=== PATIENT | female | born 1940 | race Caucasian/White ===

== ENCOUNTER → 2016-11-16 | Outpatient (CLI) | payer OTHER, MEDICARE | LOC: FIMAGING 14:53 | DX: Z12.31 Encounter for screening mammogram for malignant neoplasm of breast (principal) | CPT/HCPCS: G0202 ==

== ENCOUNTER → 2017-05-21 | Outpatient (CLI) | payer OTHER, MEDICARE ==
[~2017-05-21] MED LIST: GADOBUTROL 10 ML VIAL IVP ONE
== END ==
LOC: FIMAGING 12:23
PROVIDERS: ATTEND Internal Medicine
DX: R51 Headache (principal)
CPT/HCPCS: 70553; A9585

== ENCOUNTER 2018-02-18 20:51 | Observation (INO) | payer OTHER, MEDICARE ==
--- NOTE | 2018-02-18 21:08 | EDPHY ---
H & P Time Seen by Provider: 02/18/18 21:06 HPI/ROS: Chief complaint. Possible kidney stone HPI. Patient is 77-year-old female with sudden onset this afternoon of left flank pain. She got nauseated and somewhat dizzy. Could not find a comfortable position. No chest discomfort or trouble breathing. Denies recent urinary symptoms. She has had kidney stones in the past and this is similar to her previous symptoms. No fever. ROS Constitutional. no fever/chills, no weakness Eyes. no problems with vision ENT. no sore throat, no nasal drainage Cardiovascular. no chest pain Respiratory. no shortness of breath, no cough Abdominal. Left flank pain with nausea and vomit . no problems urinating MS. no calf pain/swelling, no neck/back pain, no joint pain Skin. no rash Lymph. no swollen glands Neuro. no headache, no dizziness, no difficulty walking or with speech Past Medical/Surgical History: Kidney stones, hypertension Social History: , nonsmoker, no alcohol Smoking Status: Never smoked Physical Exam: General Appearance: Alert well-developed female moderate distress vital signs are stable Eyes: Pupils equal and round no pallor or injection. ENT, Mouth: Mucous membranes are moist. Respiratory: There are no retractions, lungs are clear to auscultation. Cardiovascular: Regular rate and rhythm. Gastrointestinal: Abdomen is soft and nontender, no masses, bowel sounds normal. Patient shows me discomfort in the left flank but it is not worse with palpation Neurological: Awake and alert, sensory and motor exams grossly normal. Skin: Warm and dry, no rashes. Musculoskeletal: Neck is supple nontender. Extremities symmetrical, full range of motion. Psychiatric: Patient is oriented X 3, there is no agitation. Constitutional: Initial Vital Signs Temperature (C) 36.6 C 02/18/18 21:00 Heart Rate 90 02/18/18 21:00 Respiratory Rate 18 02/18/18 21:00 Blood Pressure 173/95 H 02/18/18 21:00 O2 Sat (%) 96 02/18/18 21:00 O2 Delivery Mode Room Air Allergies/Adverse Reactions: No Known Allergies Allergy (Unverified 12/14/15 23:16) Home Medications: Medication Instructions Recorded Lisinopril [Zestril 10 mg (RX)] 12/14/15 Medical Decision Making - Diagnostics Imaging Results: Imaging Impressions Abdomen/Pelvis CT 02/18/18 22:13 Impression: 7 mm mid left ureteral calculus with associated moderate hydronephrosis. Results called to Dr. Jackson Alford at 10:30 PM. Attention: This CT examination is specifically designed to evaluate patients who are clinically suspected of having acute obstructive uropathy. This examination does not use radiographic contrast, and as such, provides only a limited evaluation of the abdomen, pelvis and retroperitoneum. If there is further clinical suspicion for pathological conditions other than obstructive uropathy, a complete CT evaluation of the abdomen and pelvis utilizing intravenous, oral, and rectal contrast should be considered. CT scan reviewed by me and discussed with Dr. Juarez shows a 7 mm left mid ureter kidney stone with moderate proximal hydronephrosis. It is at the L5 level. Procedures: IV normal saline. Fentanyl for pain. Zofran for nausea ED Course/Re-evaluation: Re-evaluation patient is stable and comfortable. Patient and I discussed laboratory and imaging studies. We discussed treatment plan including recommendation for admission. She expresses understanding and agreement I consulted discussed case with Dr. Russ, hospitalist who Agrees to the admission I consulted discussed case Dr. Lin for Urology who will see the patient in consultation in the morning. He agrees with current management Differential Diagnosis: I considered kidney stone, pyelonephritis, abdominal aortic aneurysm - Data Points Laboratory Results: Laboratory Results 02/18/18 21:20 02/18/18 21:20 02/18/18 02/18/18 21:20 21:20 WBC 11.35 10^3/uL H 10^3/uL (3.80-9.50) RBC 5.31 10^6/uL 10^6/uL (4.18-5.33) Hgb 15.6 g/dL g/dL (12.6-16.3) Hct 46.5 % % (38.0-47.0) MCV 87.6 fL fL (81.5-99.8) MCH 29.4 pg pg (27.9-34.1) MCHC 33.5 g/dL g/dL (32.4-36.7) RDW 13.8 % % (11.5-15.2) Plt Count 276 10^3/uL 10^3/uL (150-400) MPV 9.4 fL fL (8.7-11.7) Neut % (Auto) 73.4 % % (39.3-74.2) Lymph % (Auto) 19.7 % % (15.0-45.0) [place] % (Auto) 5.6 % % (4.5-13.0) Eos % (Auto) 0.6 % % (0.6-7.6) Baso % (Auto) 0.3 % % (0.3-1.7) Nucleat RBC Rel Count 0.0 % % (0.0-0.2) Absolute Neuts (auto) 8.33 10^3/uL H 10^3/uL (1.70-6.50) Absolute Lymphs (auto) 2.24 10^3/uL 10^3/uL (1.00-3.00) Absolute Monos (auto) 0.64 10^3/uL 10^3/uL (0.30-0.80) Absolute Eos (auto) 0.07 10^3/uL 10^3/uL (0.03-0.40) Absolute Basos (auto) 0.03 10^3/uL 10^3/uL (0.02-0.10) Absolute Nucleated RBC 0.00 10^3/uL 10^3/uL (0-0.01) Immature Gran % 0.4 % % (0.0-1.1) Immature Gran # 0.04 10^3/uL 10^3/uL (0.00-0.10) Sodium 139 mEq/L mEq/L (135-145) Potassium 3.9 mEq/L mEq/L (3.3-5.0) Chloride 100 mEq/L mEq/L (97-110) Carbon Dioxide 26 mEq/l mEq/l (22-31) Anion Gap 13 mEq/L mEq/L (8-16) BUN 18 mg/dL mg/dL (7-23) Creatinine 0.8 mg/dL mg/dL (0.6-1.0) Estimated GFR > 60 Glucose 106 mg/dL H mg/dL (70-100) Calcium 9.7 mg/dL mg/dL (8.5-10.4) Medications Given: Discontinued Medications Fentanyl (Sublimaze) 50 mcg IVP EDNOW ONE Stop: 02/18/18 21:11 Last Admin: 02/18/18 21:24 Dose: 50 mcg Sodium Chloride (Ns) 1,000 mls @ 0 mls/hr IV EDNOW ONE; Wide Open PRN Reason: Protocol Stop: 02/18/18 22:14 Last Admin: 02/18/18 22:16 Dose: 1,000 mls Ondansetron HCl (Zofran) 4 mg IVP EDNOW ONE Stop: 02/18/18 21:11 Last Admin: 02/18/18 21:25 Dose: 4 mg Departure - Departure Disposition: [facility] Inpatient Acute Clinical Impression: Calculus of left kidney Condition: Fair Referrals: Shadia Florian MD [Primary Care Provider] - As per Instructions
[2018-02-18] MEDS ORDERED: ONDANSETRON 4 MG/2 ML VIAL IVP ONE (21:10)
[2018-02-18] MEDS ORDERED: fentaNYL 100 MCG/2 ML INJ IVP ONE (21:10)
[2018-02-18] MEDS ORDERED: NS 1,000 ML IV ONE (22:13)
[2018-02-18 22:19] LABS: PLATELET COUNT 276 10^3/uL (150-400)
[2018-02-18] MEDS ORDERED: HYDROCODONE/APAP 5/325 TAB PO PRN (23:25)
[2018-02-18] MEDS ORDERED: ONDANSETRON 4 MG/2 ML VIAL IVP PRN (23:25)
[2018-02-18] MEDS ORDERED: ACETAMINOPHEN 325 MG TAB PO PRN (23:25)
[2018-02-18] MEDS ORDERED: ONDANSETRON DISINTEGRATING 4 MG TAB PO PRN (23:25)
[2018-02-18] MEDS ORDERED: HYDROmorphONE/DILAUDID 1 MG/ML INJ IVP PRN (23:25)
[2018-02-18] MEDS ORDERED: NS 1,000 ML IV SCH (23:30)
[2018-02-19] MEDS ORDERED: KETOROLAC 15 MG/1 ML SDV IVP PRN (00:38)
[2018-02-19] MEDS ORDERED: ZOLPIDEM TARTRATE 5 MG TAB PO PRN (00:38)
[2018-02-19] MEDS ORDERED: TAMSULOSIN HCL 0.4 MG CAP PO SCH (00:45)
--- NOTE | 2018-02-19 02:34 | PDGENHP ---
History and Physical - Chief Complaint Left flank pain. - History of Present Illness Source-patient provides history appears reliable. EMR was reviewed and case discussed with ED provider. HPI-this is a very pleasant 77-year-old female with past medical history significant for HTN, diverticulitis, HLD, calcium based kidney stones who presents emergency department today with a several hour history of sudden and severe left flank pain. Patient states that she was not able to get comfortable. Her left pain did not radiate anteriorly. He has not had any hematuria or dysuria. Patient did develop some nausea vomiting without any hematemesis. Patient denies any fevers but has been experiencing chills and sweats which are now resolved. Patient also states that she was feeling a little bit lightheaded associated with position when she bent down to become increasingly dizzy but had not CIS had any syncopal episodes. Patient with a previous history of kidney stones and she states this feels similar. Patient is not on any anticoagulation she does take a baby aspirin but this has been on hold for 2 weeks due to diverticulitis. She is denying any abdominal pain or diarrhea. History Information - Allergies/Home Medication List Allergies/Adverse Reactions: No Known Allergies Allergy (Unverified 12/14/15 23:16) Home Medications: Lisinopril [Zestril 10 mg (RX)] 12/14/15 [Last Taken Unknown] Ezetimibe [Zetia] 10 mg PO 02/19/18 [Last Taken Unknown] I have personally reviewed and updated: family history, medical history, social history, surgical history - Past Medical History hypertension Additional medical history: 3-4 episodes of diverticulitis. HTN. Calcium base nephrolithiasis. HLD. - Surgical History Additional surgical history: Bilateral TKA. Colonoscopy. - Family History Additional family history: Daughter with history of kidney stones. No family history of hypertension or cardiac disease. - Social History Smoking Status: Never smoked Alcohol Use: Occasionally Drug Use: None Additional social history: Patient is lives with her . Cor status-full. Review of Systems Review of Systems: ROS: 10pt was reviewed & negative except for what was stated in HPI & below Constitutional: Reports: no symptoms, chills, diaphoresis, other (Sweats). Denies: fever EENMT: Reports: no symptoms, other (Wears glasses) Cardiac: Reports: no symptoms Respiratory: Reports: no symptoms Gastrointestinal: Reports: vomitting, nausea. Denies: diarrhea Genitourinary: Reports: other (See HPI). Denies: dysuria, hematuria Muscolosketal: Denies: joint pain, muscle pain Skin: Reports: no symptoms. Denies: change in color, rash Neurological: Reports: no symptoms. Denies: emotional problems, numbness, tingling, weakness Hematologic/Lymphatic: Reports: no symptoms Physical Exam Physical Exam: Selected Entries 02/18/18 21:00 Blood Pressure Automatic Method Heart Rate 90 Respiratory 18 Rate O2 Sat (%) 96 Temperature (C) 36.6 C Blood Pressure 173/95 H Mean Arterial 121 H Pressure (MAP) O2 Delivery Room Air Mode Temperature Oral Source Temp Pulse Resp BP Pulse Ox 36.3 C 76 17 122/67 H 94 02/19/18 00:24 02/19/18 00:24 02/19/18 00:24 02/19/18 00:24 02/19/18 00:24 Constitutional: no apparent distress, not in pain, obese, other (NAD. Pleasant adult female is lying quietly in bed.) Eyes: PERRL, anicteric sclera, EOMI, No scleral injection Ears, Nose, Mouth, Throat: no oral mucosal ulcers, dry mucous membranes ( Slightly tacky membranes.), No poor dentition Cardiovascular: regular rate and rhythym, no murmur, rub, or gallop, No edema Peripheral Pulses: 2+: dorsalis-pedis (R), dorsalis-pedis (L) Respiratory: no respiratory distress, no rales or rhonchi, clear to auscultation , No reduced air movement, No expiratory wheeze Gastrointestinal: normoactive bowel sounds, soft, non-tender abdomen, no palpable masses, No tenderness, No guarding, No distension Genitourinary: no bladder tenderness, No moore in urethra Skin: warm, normal color, no rashes or abrasions Musculoskeletal: full muscle strength (Patient able to sit up independently.), generalized weakness, No pain with ROM Neurologic: AAOx3, sensation intact bilaterally, CN II-XII Intact, No facial droop Psychiatric: interacting appropriately, not anxious, not encephalopathic, thought process linear Lab Data & Imaging Review 02/18/18 21:20 02/18/18 21:20 WBC 11.35 10^3/uL (3.80-9.50) H 02/18/18 21:20 RBC 5.31 10^6/uL (4.18-5.33) 02/18/18 21:20 Hgb 15.6 g/dL (12.6-16.3) 02/18/18 21:20 Hct 46.5 % (38.0-47.0) 02/18/18 21:20 MCV 87.6 fL (81.5-99.8) 02/18/18 21:20 MCH 29.4 pg (27.9-34.1) 02/18/18 21:20 MCHC 33.5 g/dL (32.4-36.7) 02/18/18 21:20 RDW 13.8 % (11.5-15.2) 02/18/18 21:20 Plt Count 276 10^3/uL (150-400) 02/18/18 21:20 MPV 9.4 fL (8.7-11.7) 02/18/18 21:20 Neut % (Auto) 73.4 % (39.3-74.2) 02/18/18 21:20 Lymph % (Auto) 19.7 % (15.0-45.0) 02/18/18 21:20 Stewart % (Auto) 5.6 % (4.5-13.0) 02/18/18 21:20 Eos % (Auto) 0.6 % (0.6-7.6) 02/18/18 21:20 Baso % (Auto) 0.3 % (0.3-1.7) 02/18/18 21:20 Nucleat RBC Rel Count 0.0 % (0.0-0.2) 02/18/18 21:20 Absolute Neuts (auto) 8.33 10^3/uL (1.70-6.50) H 02/18/18 21:20 Absolute Lymphs (auto) 2.24 10^3/uL (1.00-3.00) 02/18/18 21:20 Absolute Monos (auto) 0.64 10^3/uL (0.30-0.80) 02/18/18 21:20 Absolute Eos (auto) 0.07 10^3/uL (0.03-0.40) 02/18/18 21:20 Absolute Basos (auto) 0.03 10^3/uL (0.02-0.10) 02/18/18 21:20 Absolute Nucleated RBC 0.00 10^3/uL (0-0.01) 02/18/18 21:20 Immature Gran % 0.4 % (0.0-1.1) 02/18/18 21:20 Immature Gran # 0.04 10^3/uL (0.00-0.10) 02/18/18 21:20 Sodium 139 mEq/L (135-145) 02/18/18 21:20 Potassium 3.9 mEq/L (3.3-5.0) 02/18/18 21:20 Chloride 100 mEq/L (97-110) 02/18/18 21:20 Carbon Dioxide 26 mEq/l (22-31) 02/18/18 21:20 Anion Gap 13 mEq/L (8-16) 02/18/18 21:20 BUN 18 mg/dL (7-23) 02/18/18 21:20 Creatinine 0.8 mg/dL (0.6-1.0) 02/18/18 21:20 Estimated GFR > 60 02/18/18 21:20 Glucose 106 mg/dL (70-100) H 02/18/18 21:20 Calcium 9.7 mg/dL (8.5-10.4) 02/18/18 21:20 Urine Color PALE YELLOW 02/18/18 23:30 Urine Appearance CLEAR 02/18/18 23:30 Urine pH 5.0 (5.0-7.5) 02/18/18 23:30 Ur Specific Banks 1.006 (1.002-1.030) 02/18/18 23:30 Urine Protein NEGATIVE (NEGATIVE) 02/18/18 23:30 Urine Ketones NEGATIVE (NEGATIVE) 02/18/18 23:30 Urine Blood 2+ (NEGATIVE) H 02/18/18 23:30 Urine Nitrate NEGATIVE (NEGATIVE) 02/18/18 23:30 Urine Bilirubin NEGATIVE (NEGATIVE) 02/18/18 23:30 Urine Urobilinogen NEGATIVE EU (0.2-1.0) 02/18/18 23:30 Ur Leukocyte Esterase NEGATIVE (NEGATIVE) 02/18/18 23:30 Urine RBC 10-15 /hpf (0-3) H 02/18/18 23:30 Urine WBC 1-3 /hpf (0-3) 02/18/18 23:30 Ur Epithelial Cells TRACE /lpf (NONE-1+) 02/18/18 23:30 Urine Mucus TRACE /lpf (NONE-1+) 02/18/18 23:30 Urine Glucose NEGATIVE (NEGATIVE) 02/18/18 23:30 Imaging Review: CT Scan of the Urinary Tract (Abdomen and Pelvis Without Contrast) Clinical Indications: Left-sided flank pain. Technique: Multidetector helical CT imaging was performed from the kidneys to the urinary bladder without contrast. Dose reduction techniques utilized. Findings: Abdomen: There is a 7 mm calculus in the mid left ureter at the L5 vertebral body level, with associated moderate hydronephrosis. No additional calculi identified bilaterally. The right ureter is normal in size. Diverticular changes are present with the sigmoid colon without evidence of acute diverticulitis. Pelvis: No pelvic masses are seen. There is no free fluid seen. Impression: 7 mm mid left ureteral calculus with associated moderate hydronephrosis. Results called to Dr. Jackson Alford at 10:30 PM. Attention: This CT examination is specifically designed to evaluate patients who are clinically suspected of having acute obstructive uropathy. This examination does not use radiographic contrast , and as such, provides only a limited evaluation of the abdomen, pelvis and retroperitoneum. If there is further clinical suspicion for pathological conditions other than obstructive uropathy, a complete CT evaluation of the abdomen and pelvis utilizing intravenous, oral, and rectal contrast should be considered. Visualized and Interpreted imaging results: Yes Assessment & Plan Assessment: Pleasant 77-year-old female with history HTN neck, nephrolithiasis, diverticulitis, HLD who presents emergency department today with complaints of several hours onset left flank pain. Hydronephrosis - patient with 7 mm stone with associated hydronephrosis. Dr. Rodriguez with Urology was consulted from the emergency department will plan to see the patient in morning should. She will be made NPO after midnight for any possible interventions. Patient is afebrile. She is a limited leukocytosis feel this is likely reactive. Hold off on antibiotic therapy at this time. UA showing micro hematuria only. Calculus of left kidney (Acute) - plan as noted above. Patient will be given Flomax and Toradol. Left flank pain - currently resolved. Continue with Dilaudid p.r.n. Toradol Nausea vomiting - currently resolved. Continue with antiemetics p.r.n.. IV fluid hydration. Chronic medical problems Benign essential hypertension - patient's initial blood pressures in the emergency department were elevated and this is likely secondary to patient's increased pain. Since that time patient's blood pressures have improved after adequate pain control. History of diverticulitis - patient without any abdominal pain or diarrhea at this time. She is not currently on an antibiotic therapy. HLD - resume Zetia at discharge. FEN - continue with IV fluids as noted above normal saline. Electrolyte monitoring and replacement if needed. Patient will be NPO after midnight pending Urology evaluation. PPX-SCDs holding anticoagulation pending Urology eval. Cor status-full Disposition-patient admitted observation status time pending Urology evaluation and treatment plan. Patient may possibly be discharged later in the afternoon after appropriate intervention.
[2018-02-19 05:17] LABS: CREATINE KINASE 52 IU/L (0-156)
--- NOTE | 2018-02-19 09:32 | GCON ---
[f rep st] CONSULTATION DATE OF CONSULTATION: 02/19/2018 I have been asked to see this patient by Mariza Russ. ADMISSION DIAGNOSIS: Left ureteral stone. HISTORY: This 77-year-old lady had developed onset of left flank pain, nausea, and vomiting at 5 p.m . Monday night, was seen in the emergency room and admitted. She had a CAT scan that revealed she jackson d a 7 mm mid ureteral calculus on the left side with mild hydronephrosis and ureteral dilation up to the point of the stone. She also has atherosclerotic vascular disease and right renal cyst. At the present time, she is admitted for hydration and pain control. When I visited with her today, she has no pain and all symptoms been alleviated with Toradol and Flom ax. ALLERGIES: No known drug allergies. HOME MEDICATIONS: Lisinopril and Zetia. PAST MEDICAL HISTORY: Positive history for hypertension. SURGICAL HISTORY: Bilateral total knee replacements and colonoscopy. FAMILY HISTORY: Daughter with kidney stones. No family history of hypertension or cardiac disease. SOCIAL HISTORY: Nonsmoker. Occasional alcohol use. She is and lives with her . REVIEW OF SYSTEMS: CARDIAC: Negative. RESPIRATORY: Negative. GI: Negative, other than the vomit ing associated with the stone. ENDOCRINE: Negative. PHYSICAL EXAM: VITAL SIGNS: Stable. CHEST: Unlabored breathing. ABDOMEN: Soft. EXTREMITIES: L ower extremities nontender. HEART: Regular rate and rhythm. LABORATORY TESTING: White blood cell count was 11.35, creatinine 0.8, and platelet count 276,000. B lood sugar 106. She had that CAT scan that I have reviewed and given her a photo of the one picture. She has a 7 mm calculus of the left mid ureter with moderate hydronephrosis. No additional calculi are noted. She has some sigmoid diverticulosis. No pelvic masses. She does have atherosclerotic vascular disease o f aorta, and she also has a right renal cyst. ASSESSMENT AND PLAN: At the present time, she is admitted for pain control, hydration, and see if sh e can pass the stone spontaneously. If not, then we would address that surgically, and I will discus s that depending on her clinical course. /[id number]/MODL
--- NOTE | 2018-02-19 10:13 | ASMTCMCOM ---
CM Note CM Note Notes: Chart reviewed for discharge planning purposes. 77 year old female admitted via ED with severe flank pain. Diagnosed with renal calculi . Normally lives Independent with her . Urology consulted. Pain gone this am. Hydrating and monitoring for now. No needs identified CM available should needs arise. Plan: Home with family support when medically cleared for discharge. Date Signed: 02/19/2018 10:13 AM Electronically Signed By:Johnna Zendejas RN
[2018-02-19] MEDS ORDERED: EZETIMIBE 10 MG TAB PO SCH (13:00)
[2018-02-19 15:46] VITALS: BP 113/50
--- NOTE | 2018-02-19 15:48 | GDS ---
[f rep st] DISCHARGE SUMMARY PRIMARY CARE PROVIDER: Dr. Shadia Florian. IN-HOSPITAL CONSULTANTS: Dr. Robin Cee, Urology. CHIEF COMPLAINT: Left-sided flank pain, nausea, and vomiting. HISTORY OF PRESENT ILLNESS: The patient is a 77-year-old female with a past medical history of prior nephrolithiasis and hypertension, who presented to the [facility] emergency room in the evening of 02/18/2018, with complaint of left-sided flank pain. She had a urinalysis performed w [facility] showed evidence of blood, but no evidence of an infectious process. A CT scan of her abdomen an d pelvis was done which revealed the presence of a 7 cm calculus midway down in the left ureter. The patient was subsequently admitted to the hospital for pain management and urologic consultation. Dr Mehul Cee saw her in the morning of 02/19/2018, and in the plan essentially was for continued pain cont rol and hydration, see if she could pass the stone spontaneously. Surgery was felt to be an option i f it did not. The patient throughout the afternoon did not have any nausea or flank pain, and she as ked about going home to continue conservative measures. I have corresponded with Dr. Cee, and at t he current time, we are not sure that the stone will pass or not, but being that her symptoms seem to have abated, it seemed reasonable to allow her to return home and continue with Flomax and hydration and straining her urine to see if she would pass the stone on her own as she is inclined not toward surgery at this time. HOSPITAL COURSE BY PROBLEM: 1. A 7 mm left ureter calculus, currently asymptomatic. I have recommended that we continue with Fl omax at least once daily for now and continue to push hydration and short term urologic followup is recommended. Dr. Cee recommended a followup visit this Monday. The patient actually tells me t hat she has worked with a urologist in [place] previously and may instead schedule with her urologist in [place]. 2. Left flank pain, resolved currently. No major issues throughout the day today. I am prescribing her hydrocodone/acetaminophen in case of recurrent pain. 3. Nausea and vomiting. Again, this is also resolved. I will prescribe her Zofran in case of recur rence. 4. Hypertension. No changes made during this hospitalization. Blood pressures appeared well contro lled. 5. Hyperlipidemia, on Zetia. 6. DVT prophylaxis. Compression devices were used. No heparin or Lovenox in light of hematuria. 7. Disposition. She does appear stable for discharge home today. She does not appear toxic at this time, so I think it is reasonable to give her a trial of conservative treatment and see how she does . EXAM ON DAY OF DISCHARGE: VITAL SIGNS: Temperature 36.7, blood pressure 128/64, heart rate 76, resp irations 18, saturating 95% on room air. GENERAL: Patient is awake, alert, conversant, no acute dis tress. HEART: Regular, no murmurs appreciated. LUNGS: Clear on auscultation with normal respirato ry effort. ABDOMEN: Soft, nontender, nondistended. Normal bowel sounds. No CVA tenderness on the left appreciated. GENITOURINARY: No Barks[place] catheter. EXTREMITIES: No significant pitting edema. M USCULOSKELETAL: No calf pain with palpation. NOTABLE STUDIES: CT abdomen and pelvis without IV contrast showed 7 mm mid left ureteral calculus wi th associated moderate hydronephrosis. White blood cell count 11, hemoglobin 15, platelets 276. Sodium is 139, potassium 4.1, chloride 108, bicarb 23, BUN is 16, creatinine 0.6, glucose 88. Urinalysis shows negative leukocyte esterase and nitrite, 2+ blood. DISCHARGE MEDICATIONS: 1. Hydrocodone/acetaminophen 5/325 one to two tablets every 4 hours as needed for moderate to severe pain. 2. Zofran 4 mg orally every 4 hours as needed for nausea or vomiting. 3. Flomax 0.4 mg nightly. 4. Zetia 5 mg daily. 5. Lisinopril 5 mg daily. 6. Zolpidem 5 mg nightly as needed. DISCHARGE INSTRUCTIONS: I recommend a followup visit this week with Urology as recommended. 40 minutes of time dedicated to discharge efforts. /[id number]/MODL
[2018-02-20] MEDS ORDERED: LISINOPRIL 5 MG TAB PO SCH (09:00)
== END 2018-02-19 17:07 | disposition home or self-care (01) ==
LOC: INTOOBSV 23:09 → F1N 02-19 00:06
PROVIDERS: ADMIT Family Medicine; ATTEND Family Medicine
DX: N20.1 Calculus of ureter (principal); N13.30 Unspecified hydronephrosis; E86.9 Volume depletion, unspecified; E78.5 Hyperlipidemia, unspecified; I10 Essential (primary) hypertension; M16.0 Bilateral primary osteoarthritis of hip; M51.35 Other intervertebral disc degeneration, thoracolumbar region; Z96.653 Presence of artificial knee joint, bilateral
CPT/HCPCS: 74018; 74176; 96361; 96374; 96375; 99285; G0378; J1885; J2405; J3010

== ENCOUNTER 2018-09-08 18:50 | Emergency (ER) | payer OTHER, MEDICARE ==
--- NOTE | 2018-09-08 19:10 | EDPHY ---
H & P Stated Complaint: Lac on R thumb Time Seen by Provider: 09/08/18 18:52 HPI/ROS: Chief Complaint: Thumb laceration HPI: 78-year-old woman sustained a laceration to her right thumb while using a mandoline. She said that 8 had blood profusely but is now improved. She does not recall her last tetanus but is declining a tetanus vaccination at this time because she has pain in difficulty in both of her shoulders. No other injuries. ROS: 10 systems were reviewed and were negative except those elements noted in the HPI. Social History: No smoking, no alcohol, no recreational drug use Family History: non-contributory Physical Exam: General: Awake, alert, no acute distress Right hand: Patient has a 7 mm x 4 mm skin avulsion on the radial aspect of her right thumb pad. There is no nail bed involvement. Injury extends into the dermis only. There is no deep tissue involvement. Sensations intact distally. Capillary refills less than 2 sec. Skin: No rash - Personal History Current Tetanus/Diphtheria Vaccine: No Current Tetanus Diphtheria and Acellular Pertussis (TDAP): No - Medical/Surgical History Hx Asthma: No Hx Chronic Respiratory Disease: No Hx Diabetes: No Hx Cardiac Disease: No Hx Renal Disease: No Hx Cirrhosis: No Hx Alcoholism: No Hx HIV/AIDS: No Hx Splenectomy or Spleen Trauma: No Other PMH: 2 episodes of kidney stone, Childbirth x2, mild diverticulitis, bilateral knee replacments - Social History Smoking Status: Never smoked Constitutional: Initial Vital Signs Temperature (C) 36.9 C 09/08/18 18:59 Heart Rate 85 09/08/18 18:59 Respiratory Rate 16 09/08/18 18:59 Blood Pressure 172/75 H 09/08/18 18:59 O2 Sat (%) 96 09/08/18 18:59 O2 Delivery Mode Room Air Allergies/Adverse Reactions: No Known Allergies Allergy (Unverified 12/14/15 23:16) Home Medications: Medication Instructions Recorded Ezetimibe [Zetia] 5 mg PO SUMOWEFR 02/19/18 Lisinopril [Zestril 5 mg (*)] 5 mg PO DAILY 02/19/18 Zolpidem Tartrate [Ambien 5MG (*)] 5 mg PO HS PRN 02/19/18 Medical Decision Making ED Course/Re-evaluation: 78-year-old woman with a nonsuturable skin avulsion on her right thumb. It has been cleaned and dressed with a non adherent dressing. She will be referred to her primary care physician for follow-up. Return for any concerns. Departure - Departure Disposition: Home, Routine, Self-Care Clinical Impression: Skin avulsion Condition: Good Instructions: Skin Avulsion (ED) Additional Instructions: Keep the dressing clean and dry. You may change the dressing daily. Return to the emergency department for increasing pain, redness spreading up her hand, fevers, discharge from the wound, or any other concerns. Referrals: Shadia Florian MD [Primary Care Provider] - As per Instructions
[2018-09-08] MEDS ORDERED: LET GEL TOPICAL 1 EA SYR TP ONE (19:11)
[2018-09-08 19:29] VITALS: BP 168/74
== END 2018-09-08 19:35 | disposition home or self-care (01) ==
LOC: CED 18:50
DX: S61.001A Unspecified open wound of right thumb without damage to nail, initial encounter (principal); W27.4XXA Contact with kitchen utensil, initial encounter; Y93.G1 Activity, food preparation and clean up; Y92.9 Unspecified place or not applicable; Y99.9 Unspecified external cause status